=== PATIENT | female | born 2000 | race Two or more races ===

== ENCOUNTER 2023-03-14 00:03 | Inpatient (IN) | payer MEDICAID, OTHER ==
[~2023-03-14] VITALS: Ht 162.6 cm; Wt 187.7 kg
[2023-03-14 02:08] LABS: COVID AG,FIA SOURCE NASAL SWAB
[2023-03-14 02:08] LABS: PH,URINE DRUG SCREEN 5.5 (5.0-8.0)
[2023-03-14 02:14] LABS: AMPHET/METH SCREEN,URINE NEGATIVE (NEGATIVE); BARBITURATE SCREEN, URINE NEGATIVE (NEGATIVE); BENZODIAZEPINES SCREEN,URINE NEGATIVE (NEGATIVE); CANNABINOID SCREEN,URINE NEGATIVE (NEGATIVE); COCAINE SCREEN,URINE NEGATIVE (NEGATIVE); METHADONE SCREEN, URINE NEGATIVE (NEGATIVE); OPIATE SCREEN,URINE NEGATIVE (NEGATIVE); PHENCYCLIDINE SCREEN,URINE NEGATIVE (NEGATIVE)
[2023-03-14] MEDS ORDERED: HALOPERIDOL 5 MG TABLET PO PRN (02:15)
[2023-03-14] MEDS ORDERED: ZOLPIDEM TARTRATE 10 MG TABLET PO PRN (02:15)
[2023-03-14] MEDS ORDERED: LORazepam 2 MG TABLET PO PRN (02:15)
[2023-03-14 02:19] LABS: BASOPHILS % (AUTO) 0.1 % (0.0-2.0); EOSINOPHILS % (AUTO) 0 % (1.0-6.0); HEMOGLOBIN 11.7 g/dL (12.0-16.0); LYMPHOCYTES # (AUTO) 1.8 K/uL (1.0-4.8); LYMPHOCYTES % (AUTO) 11.9 % (22.0-44.0); MEAN CORPUSCULAR HEMOGLOBIN 25.6 pg (26.0-34.0); MEAN CORPUSCULAR HGB CONC 32.4 G/dL (31.0-37.0); MEAN CORPUSCULAR VOLUME 79 fL (80-100); MONOCYTES # (AUTO) 1.1 K/uL (0.1-1.0); MONOCYTES % (AUTO) 7.1 % (2.0-9.0); NEUTROPHILS # (AUTO) 12.5 K/uL (1.8-7.7); NEUTROPHILS % (AUTO) 80.9 % (40.0-70.0); PLATELET COUNT (AUTO) 370 K/uL (150-450); RED BLOOD CELL COUNT(AUTO) 4.56 MIL/uL (4.00-5.20); RED CELL DISTRIBUTION WIDTH 15.7 % (11.5-14.5); WHITE BLOOD COUNT (AUTO) 15.5 K/uL (4.5-11.0)
[2023-03-14 02:21] LABS: ALCOHOL, URINE DRUG SCREEN NEGATIVE (NEGATIVE)
[2023-03-14 02:29] LABS: ANION GAP 10 mmol/L (8-16); CALCIUM, TOTAL 8.8 mg/dL (8.8-10.5); CARBON DIOXIDE 26 mmol/L (22-29); CHLORIDE 104 mmol/L (98-107); GLOMERULAR FILTR. RATE CALC > 60 mL/min (>60); GLUCOSE,RANDOM 102 mg/dL (70-110); POTASSIUM 3.4 mmol/L (3.5-5.1); SODIUM SERUM 140 mmol/L (136-145); UREA NITROGEN, BLOOD 7 mg/dL (7-18)
[2023-03-14 02:34] LABS: ALANINE AMINOTRANSFERASE 37 U/L (12-78); ALBUMIN 3.7 g/dL (3.4-5.0); ALKALINE PHOSPHATASE 69 U/L (46-116); ASPARTATE AMINOTRANSFERASE 22 U/L (15-37); BILIRUBIN,TOTAL 0.1 mg/dL (0.1-1.0); TOTAL PROTEIN, SERUM 6.9 g/dL (6.4-8.2)
[2023-03-14 02:34] LABS: SARS-COV2 (COVID) ANTIGEN,FIA Negative (Negative)
[2023-03-14 02:36] LABS: ALCOHOL, BLOOD (SERUM) < 3 mg/dL (0-10)
[2023-03-14] MEDS ORDERED: POTASSIUM CHLORIDE 10% 40 MEQ/30 ML LIQUID UDCUP PO ONE (03:00)
[2023-03-14 05:41] VITALS: BP 138/93; PULSE 102; RESP 18; TEMP 98.7; O2SAT 99
[2023-03-14] MEDS ORDERED: IBUPROFEN 400 MG TABLET PO PRN (07:00)
[2023-03-14] MEDS ORDERED: CloNIDine HCL 0.1 MG TABLET PO PRN (07:00)
[2023-03-14] MEDS ORDERED: PETROLATUM,WHITE 28 GM JELLY TP PRN (07:00)
[2023-03-14] MEDS ORDERED: DOCUSATE SODIUM 100 MG CAPSULE PO PRN (07:00)
[2023-03-14] MEDS ORDERED: ALBUTEROL SULFATE HFA 90 MCG/PUFF 8 GM INHALER IH PRN (07:00)
[2023-03-14] MEDS ORDERED: ACETAMINOPHEN 325 MG TABLET PO PRN (07:00)
[2023-03-14] MEDS ORDERED: NICOTINE 14 MG/24 HOUR PATCH TD PRN (07:00)
[2023-03-14] MEDS ORDERED: MAGNESIUM HYDROXIDE SUSPENSION 30 ML UDCUP PO PRN (07:00)
[2023-03-14] MEDS ORDERED: ONDANSETRON HCL 4 MG TABLET PO PRN (07:00)
[2023-03-14] MEDS ORDERED: MAG HYDROX/ALUMINUM HYD/SIMETH ES 30 ML SUSPENSION UDCUP PO PRN (07:00)
[2023-03-14] MEDS ORDERED: LOPERAMIDE HCL 2 MG CAPSULE PO PRN (07:00)
[2023-03-14] MEDS ORDERED: GuaiFENesin/D-METHORPHAN [SUGAR-FREE] 200-20MG/10 ML SYRUP UDCUP PO PRN (07:00)
[2023-03-14 08:29] VITALS: BP 121/74; PULSE 84; RESP 16; TEMP 97.6; O2SAT 98
[2023-03-14] MEDS: LITHIUM CARBONATE 300 MG CAPSULE PO SCH (21:01)
[2023-03-14] MEDS: RisperiDONE 1 MG TABLET PO SCH (21:01)
[2023-03-14] MEDS: CloNIDine HCL 0.1 MG TABLET PO SCH (21:01)
[2023-03-14 22:08] VITALS: BP 132/78; PULSE 94; RESP 18; TEMP 97.7; O2SAT 98
[2023-03-15 07:58] LABS: BASOPHILS % (AUTO) 0.1 % (0.0-2.0); EOSINOPHILS % (AUTO) 0.1 % (1.0-6.0); HEMATOCRIT 38.8 % (36-46); HEMOGLOBIN 12.5 g/dL (12.0-16.0); MEAN CORPUSCULAR HEMOGLOBIN 25.8 pg (26.0-34.0); MEAN CORPUSCULAR HGB CONC 32.3 G/dL (31.0-37.0); MEAN CORPUSCULAR VOLUME 80 fL (80-100); MONOCYTES # (AUTO) 0.5 K/uL (0.1-1.0); MONOCYTES % (AUTO) 8.1 % (2.0-9.0); NEUTROPHILS # (AUTO) 3.1 K/uL (1.8-7.7); NEUTROPHILS % (AUTO) 55.7 % (40.0-70.0); PLATELET COUNT (AUTO) 362 K/uL (150-450); RED BLOOD CELL COUNT(AUTO) 4.86 MIL/uL (4.00-5.20); RED CELL DISTRIBUTION WIDTH 15.9 % (11.5-14.5); WHITE BLOOD COUNT (AUTO) 5.7 K/uL (4.5-11.0)
[2023-03-15 08:17] VITALS: BP 111/74; PULSE 100; RESP 18; TEMP 98; O2SAT 100
[2023-03-15 08:24] LABS: POTASSIUM 3.6 mmol/L (3.5-5.1); THYROID STIMULATING HORMONE 2.14 uIU/mL (0.36-3.74)
[2023-03-15] MEDS: BuPROPion HCL XL 150 MG ER TABLET PO SCH (09:58)
[2023-03-15 20:48] VITALS: BP 125/78; PULSE 99; RESP 18; TEMP 98; O2SAT 99
[2023-03-15] MEDS: CloNIDine HCL 0.1 MG TABLET PO SCH (21:31)
[2023-03-15] MEDS: RisperiDONE 1 MG TABLET PO SCH (21:31)
[2023-03-15] MEDS: LITHIUM CARBONATE 300 MG CAPSULE PO SCH (21:32)
[2023-03-16] MEDS: BuPROPion HCL XL 150 MG ER TABLET PO SCH (08:49)
[2023-03-16 09:37] VITALS: BP 114/71; PULSE 118; RESP 20; TEMP 97.7; O2SAT 100
[2023-03-16] MEDS ORDERED: RISP1TAB48 PO (18:08)
[2023-03-16] MEDS ORDERED: BUPR-49 PO (18:08)
[2023-03-16] MEDS ORDERED: LITH300C3 PO (18:08)
== END 2023-03-16 18:30 | disposition home or self-care (01) | DRG 753 ==
LOC: EMS 00:05 → B3A 04:20
PROVIDERS: ADMIT Psychiatry & Neurology Child & Adolescent Psychiatry; ATTEND Psychiatry & Neurology Child & Adolescent Psychiatry
DX: F31.4 Bipolar disorder, current episode depressed, severe, without psychotic features (principal); R45.851 Suicidal ideations; Z68.45 Body mass index [BMI] 70 or greater, adult; D72.829 Elevated white blood cell count, unspecified; S61.511A Laceration without foreign body of right wrist, initial encounter; E87.6 Hypokalemia; Z20.822 Contact with and (suspected) exposure to COVID-19; E66.01 Morbid (severe) obesity due to excess calories; F84.0 Autistic disorder; F41.9 Anxiety disorder, unspecified; S61.512A Laceration without foreign body of left wrist, initial encounter; X78.0XXA Intentional self-harm by sharp glass, initial encounter; Y93.89 Activity, other specified; Y92.89 Other specified places as the place of occurrence of the external cause; Y99.8 Other external cause status
CPT/HCPCS: 80053; 80061; 80307; 83036; 84132; 84443; 84703; 85025; 99285; G0480